=== PATIENT | female | born 1980 | race Hispanic/Latino ===

== ENCOUNTER 2025-06-02 17:11 | Inpatient (IN) | payer BC ==
[~2025-06-02 17:11] MED LIST: Iopamidol 370 76% 100 ML VIAL ONE
[2025-06-02 17:43] LABS: #Basophils 0.05 10x3/uL (0.0-0.2); #Eosinophils 0.04 10x3/uL (0.0-0.7); #Monocytes 0.57 10x3/uL (0.11-0.59); #Neutrophils 14.27 10x3/uL (1.40-6.50); %Basophils 0.3 % (0.0-1.0); %Eosinophils 0.2 % (0.0-10.0); %Lymphocytes 11.5 % (21.0-51.0); %Monocytes 3.4 % (0.0-10.0); %Neutrophils 84.2 % (42.0-75.0); Hematocrit 45.5 % (36.0-47.0); Hemoglobin 15.2 g/dL (12.0-16.0); Mean Corpuscular Hemoglobin 31.3 pg (27.0-31.0); Mean Corpuscular Volume 93.6 fL (78.0-98.0); Platelet Count 179 10x3/uL (130-400); Red Blood Cell (RBC) Count 4.86 mill/uL (4.20-5.40); White Blood Cell (WBC) Count 16.94 10x3/uL (4.8-10.8)
[2025-06-02 18:04] LABS: ALT (SGPT) 68 U/L (Less than 34); AST (SGOT) 87 U/L (11-34); Albumin 5.0 g/dL (3.1-4.5); Alkaline Phosphatase 104 U/L (40-110); Anion Gap 20 mmol/L (10-20); BUN (Urea Nitrogen) 9 mg/dL (7.0-18.7); Bilirubin, Total 0.6 mg/dL (0.3-1.2); Calc. Creatinine Clearance 0 mL/min (70-130); Calcium 10.4 mg/dL (7.8-10.44); Carbon Dioxide 25 mmol/L (22-29); Chloride 100 mmol/L (98-107); Globulin 4.1 g/dL (2.4-3.5); Glucose 171 mg/dL (70-105); Potassium 4.0 mmol/L (3.5-5.1); Sodium 141 mmol/L (136-145)
[2025-06-02 18:06] LABS: Lipase 567 U/L (8-78)
[2025-06-02 18:09] LABS: Pregnancy Test - Urine (BHCG) Negative (Negative); Pregu Control Background? CLEAR/WHITE (CLR/WHITE); Pregu Control Bar Appear? YES (CONTROL BAR)
[2025-06-02 18:17] LABS: CAUTI Indications for Culture Dysuria,urgency,freq; Glucose, Urine (Dipstick) Normal (Negative); Leukocyte 75 Leu/uL (Negative); Protein, Urine (Dipstick) 20 mg/dL (Neg-Trace); RBC/HPF 0-3 HPF (0-3); Specific Gravity, Urine 1.021 (1.002-1.036)
[2025-06-02 18:18] LABS: Bacteria/HPF 1+ HPF (None Seen)
[2025-06-02 18:19] LABS: Urine Culture Reflex No No
[2025-06-02] MEDS ORDERED: Droperidol 5 MG/2 ML VIAL ONE (19:19)
[2025-06-02] MEDS ORDERED: Acetaminophen 325 MG TAB PO PRN (21:15)
[2025-06-02] MEDS: Ondansetron PF 4 MG/2 ML Vial IVP PRN (22:46)
[2025-06-02 23:36] VITALS: BMI 29.2
[2025-06-03] MEDS: Ketorolac Tromethamine 30 MG (1 mL) VIAL IVP PRN (03:47)
[2025-06-03 05:33] LABS: #Basophils Less than 0.03 10x3/uL (0.0-0.2); #Eosinophils Less than 0.03 10x3/uL (0.0-0.7); #Monocytes 0.65 10x3/uL (0.11-0.59); #Neutrophils 9.75 10x3/uL (1.40-6.50); %Basophils 0.1 % (0.0-1.0); %Eosinophils 0.0 % (0.0-10.0); %Lymphocytes 11.3 % (21.0-51.0); %Monocytes 5.5 % (0.0-10.0); %Neutrophils 82.6 % (42.0-75.0); Hematocrit 40.4 % (36.0-47.0); Hemoglobin 13.5 g/dL (12.0-16.0); Mean Corpuscular Hemoglobin 31.2 pg (27.0-31.0); Mean Corpuscular Volume 93.3 fL (78.0-98.0); Platelet Count 162 10x3/uL (130-400); Red Blood Cell (RBC) Count 4.33 mill/uL (4.20-5.40); White Blood Cell (WBC) Count 11.80 10x3/uL (4.8-10.8)
[2025-06-03 05:46] LABS: ALT (SGPT) 50 U/L (Less than 34); AST (SGOT) 57 U/L (11-34); Albumin 4.0 g/dL (3.1-4.5); Alkaline Phosphatase 82 U/L (40-110); Anion Gap 16 mmol/L (10-20); BUN (Urea Nitrogen) 7 mg/dL (7.0-18.7); Bilirubin, Total 0.9 mg/dL (0.3-1.2); Calc. Creatinine Clearance 126 mL/min (70-130); Calcium 9.1 mg/dL (7.8-10.44); Carbon Dioxide 24 mmol/L (22-29); Cardiac Risk 5.0 (Less than 4.5); Chloride 102 mmol/L (98-107); Cholesterol 222 mg/dl (< 200 Desired); Globulin 3.1 g/dL (2.4-3.5); Glucose 143 mg/dL (70-105); HDL Cholesterol 44 mg/dL (>60 Neg Risk); Potassium 3.8 mmol/L (3.5-5.1); Sodium 138 mmol/L (136-145); Triglycerides 499 mg/dL (Less than 150)
[2025-06-03] MEDS: FLU (Fluarix Triv) 25-26 (6MOS UP)/PF 45 MCG/0.5 ML Syringe IM ONE (06:42)
[2025-06-03] MEDS ORDERED: Ondansetron PF 4 MG/2 ML Vial IVP PRN ×2 (10:08→19:07)
[2025-06-03] MEDS ORDERED: diphenhydrAMINE 50 MG/ML VIAL IVP PRN (19:07)
[2025-06-03] MEDS ORDERED: diphenhydrAMINE 50 MG/ML VIAL IM PRN (19:07)
[2025-06-03] MEDS ORDERED: diphenhydrAMINE 25 MG CAP PO PRN (19:07)
[2025-06-03] MEDS ORDERED: Communication Order-Pharmacy FS SCH (19:15)
[2025-06-03] MEDS: fentaNYL Citrate/PF 55 ML IV SCH (19:39)
[2025-06-04 05:03] LABS: #Basophils Less than 0.03 10x3/uL (0.0-0.2); #Eosinophils 0.15 10x3/uL (0.0-0.7); #Monocytes 0.51 10x3/uL (0.11-0.59); #Neutrophils 7.59 10x3/uL (1.40-6.50); %Basophils 0.2 % (0.0-1.0); %Eosinophils 1.6 % (0.0-10.0); %Lymphocytes 13.8 % (21.0-51.0); %Monocytes 5.3 % (0.0-10.0); %Neutrophils 78.7 % (42.0-75.0); Hematocrit 37.1 % (36.0-47.0); Hemoglobin 12.4 g/dL (12.0-16.0); Mean Corpuscular Hemoglobin 31.6 pg (27.0-31.0); Mean Corpuscular Volume 94.6 fL (78.0-98.0); Platelet Count 118 10x3/uL (130-400); Red Blood Cell (RBC) Count 3.92 mill/uL (4.20-5.40); White Blood Cell (WBC) Count 9.64 10x3/uL (4.8-10.8)
[2025-06-04 05:17] LABS: Lipase 968 U/L (8-78)
[2025-06-04 05:22] LABS: ALT (SGPT) 42 U/L (Less than 34); AST (SGOT) 50 U/L (11-34); Albumin 3.3 g/dL (3.1-4.5); Alkaline Phosphatase 75 U/L (40-110); Anion Gap 13 mmol/L (10-20); BUN (Urea Nitrogen) 9 mg/dL (7.0-18.7); Bilirubin, Total 0.9 mg/dL (0.3-1.2); Calc. Creatinine Clearance 124 mL/min (70-130); Calcium 8.7 mg/dL (7.8-10.44); Carbon Dioxide 26 mmol/L (22-29); Chloride 104 mmol/L (98-107); Globulin 3.0 g/dL (2.4-3.5); Glucose 140 mg/dL (70-105); Potassium 3.7 mmol/L (3.5-5.1); Sodium 139 mmol/L (136-145)
[2025-06-04 06:43] LABS: Platelet Adequacy Comment Platelets Decreased; RBC Morphology Within Normal Limits
[2025-06-04] MEDS: Pantoprazole 40 MG VIAL IVP SCH (09:32)
[2025-06-04 21:00] VITALS: BP 120/76; TEMP 98.7
== END 2025-06-04 23:20 | disposition short-term general hospital (02) | DRG 440 ==
LOC: ERS 17:11 → T4-B 20:57 → OBSVTOIN 06-03 09:28
PROVIDERS: ADMIT Family Medicine; ATTEND Family Medicine
PROC: 3E0234Z Introduction of Serum, Toxoid and Vaccine into Muscle, Percutaneous Approach (ICD-10-PCS; principal; 2025-06-03)
DX: K85.90 Acute pancreatitis without necrosis or infection, unspecified (principal); K76.0 Fatty (change of) liver, not elsewhere classified; E78.1 Pure hyperglyceridemia; Z98.890 Other specified postprocedural states; Z90.49 Acquired absence of other specified parts of digestive tract; Z90.710 Acquired absence of both cervix and uterus; Z88.0 Allergy status to penicillin; Z79.899 Other long term (current) drug therapy; Z79.891 Long term (current) use of opiate analgesic; Z23 Encounter for immunization
CPT/HCPCS: 36415; 74177; 80053; 80061; 81001; 81025; 83036; 83615; 83690; 84478; 85025; 93005; 96374; 96375; 96376; J1790; J1885; J2270; J2272; J2405; J2470; J3010; J7120; Q9967